=== PATIENT | female | born 1945 | race Caucasian/White ===

== ENCOUNTER 2023-05-29 13:10 | Day surgery (SDC) | payer BC ==
[2023-05-25 12:36] LABS: BASOPHILS # (AUTO) 0.1 X10'3 (0-0.2); BASOPHILS % (AUTO) 1.6 % (0-1); EOSINOPHILS # (AUTO) 0.2 X10'3 (0-0.9); EOSINOPHILS % (AUTO) 4.4 % (0-6); HEMATOCRIT 35.6 % (35.0-45.0); HEMOGLOBIN 11.7 g/dl (12.0-16.0); LYMPHOCYTES # (AUTO) 1.3 X10'3 (1.1-4.8); LYMPHOCYTES % (AUTO) 22.7 % (21-51); MEAN CORPUSCULAR HEMOGLOBIN 28.7 PG (27.0-31.0); MEAN CORPUSCULAR HGB CONC 32.9 g/dL (33.0-36.5); MEAN CORPUSCULAR VOLUME 87.3 FL (78-98); MEAN PLATELET VOLUME 8.4 FL (7.4-10.4); MONOCYTES # (AUTO) 0.5 X10'3 (0-0.9); MONOCYTES % (AUTO) 9.5 % (2-12); NEUTROPHILS # (AUTO) 3.4 X10'3 (1.8-7.7); NEUTROPHILS % (AUTO) 61.8 % (42-75); PLATELET COUNT 197 X10'3 (140-440); RED BLOOD COUNT 4.08 X10'6 (4.20-5.60); WHITE BLOOD COUNT 5.6 X10'3 (4.5-11.0)
[2023-05-25 12:47] LABS: APTT 29 SECONDS (22-32); INR 1.1 INR; PROTHROMBIN TIME 11.8 SECONDS (9.0-12.0)
[2023-05-25 12:48] LABS: ALBUMIN 2.9 G/DL (3.4-5.0); ANION GAP 4 (8-16); BLOOD UREA NITROGEN 12 MG/DL (7-18); BUN/CREATININE RATIO 12.6 (10.0-20.0); CHLORIDE 103 MMOL/L (99-107); CHOL/HDL RATIO 2.7 (0.00-4.99); CHOLESTEROL 112 MG/DL (0-200); CREATININE 0.95 MG/DL (0.40-0.90); GLUCOSE 102 MG/DL (70-104); HDL CHOLESTEROL 41 MG/DL (35-60); LDL CHOLESTEROL 60 MG/DL (50-100); SODIUM 136 MMOL/L (135-145); TOTAL CARBON DIOXIDE 28.6 MMOL/L (24-32); TRIGLYCERIDES 99 MG/DL (20-135); eGFR 57 ML/MIN
[2023-05-29] VITALS (7 sets, daily range): BP systolic 113–155; BP diastolic 62–80; PULSE 91–101; RESP 13–17; TEMP 97.8; O2SAT 94–96
[~2023-05-29] VITALS: Ht 162.6 cm; Wt 116.3 kg
[~2023-05-29 13:10] MED LIST: CYCL-1 PO; INDO50CA96 PO
[2023-05-29] MEDS ORDERED: LISI20TA28 PO (13:40)
[2023-05-29] MEDS ORDERED: OMEP20CA16 PO (13:40)
[2023-05-29] MEDS ORDERED: DOXE150C2 PO (13:40)
[2023-05-29] MEDS ORDERED: LEVO150T8 PO (13:40)
[2023-05-29] MEDS ORDERED: FURO40TA4 PO (13:40)
[2023-05-29] MEDS ORDERED: ASPI81TA52 PO (13:40)
[2023-05-29] MEDS ORDERED: ATOR20TA66 PO (13:40)
[2023-05-29] MEDS ORDERED: TIZA-205 PO (13:40)
[2023-05-29] MEDS ORDERED: diphenhydrAMINE 25mg capsule PO PRN (14:25)
[2023-05-29] MEDS ORDERED: normal saline 1,000 ML IV SCH (14:25)
[2023-05-29] MEDS ORDERED: LORazepam 0.5 MG tablet PO PRN (14:25)
[2023-05-29] MEDS ORDERED: midazolam 1 mg/ML 2ml injection ONE (16:02)
[2023-05-29] MEDS ORDERED: verapamil 2.5 mg/ml inj IV ONE (16:02)
[2023-05-29] MEDS ORDERED: LIDOcaine 1% (10mg/ml) 2ml vial ONE (16:02)
[2023-05-29] MEDS ORDERED: fentaNYL/PF 50MCG/1 ML 2ML syringe ONE (16:02)
[2023-05-29] MEDS ORDERED: heparin 1,000unit/ml 10ml vial 10 ML ONE (16:02)
[2023-05-29] MEDS ORDERED: iohexol 350MG/ML 100ml bottle IV ONE (16:02)
[2023-05-29] MEDS ORDERED: nitroGLYCERIN 500mcg/5mL D5W 5 ML IV ONE (16:11)
[2023-05-29] MEDS ORDERED: LIDOcaine 1% (10mg/ml)w/preservative inj. 20ml MDV ONE (16:13)
[2023-05-30 06:09] LABS: ISTAT HGB MIX 10.5 g/dl (12.0-16.0); ISTAT Hct MIX 31 %PCV (35-45); ISTAT O2 SATURATION MIX VENOUS 89 % (60-80); ISTAT SOURCE BLNK
[2023-05-30 06:09] LABS: ISTAT HGB MIX 10.2 g/dl (12.0-16.0); ISTAT Hct MIX 30 %PCV (35-45); ISTAT O2 SATURATION MIX VENOUS 67 % (60-80); ISTAT SOURCE BLNK
== END 2023-05-29 18:55 | disposition home or self-care (01) ==
LOC: SSTAY O 13:10
PROVIDERS: ATTEND Student in an Organized Health Care Education/Training Program
DX: I35.0 Nonrheumatic aortic (valve) stenosis (principal); I11.0 Hypertensive heart disease with heart failure; I50.9 Heart failure, unspecified; E78.5 Hyperlipidemia, unspecified; I65.29 Occlusion and stenosis of unspecified carotid artery; M19.90 Unspecified osteoarthritis, unspecified site; G43.909 Migraine, unspecified, not intractable, without status migrainosus; E03.9 Hypothyroidism, unspecified; E66.01 Morbid (severe) obesity due to excess calories; Z68.42 Body mass index [BMI] 45.0-49.9, adult; Z79.899 Other long term (current) drug therapy; Z79.82 Long term (current) use of aspirin
CPT/HCPCS: 36415; 80048; 80061; 82803; 85014; 85025; 85610; 85730; 93005; 93460; 99152; A6258; J1644; J2250; J3010; J3490; J7030; Q0163; Q9967; 99153; A6402; C1751; C1894

== ENCOUNTER 2023-07-27 11:50 | Outpatient (CLI) | payer BC, MEDICAID ==
[~2023-07-27] VITALS: Ht 158.8 cm; Wt 117.9 kg
[~2023-07-27 11:50] MED LIST changes: +ASPI81TA52 PO; +ATOR20TA66 PO; +DOXE150C2 PO; +FURO40TA4 PO; +LEVO150T8 PO; +OMEP20CA16 PO; +TIZA-205 PO
[2023-07-27 13:00] LABS: RED CELL DISTRIBUTION WIDTH 15.2 % (11.5-14.5)
[2023-07-27 13:02] LABS: HEMATOCRIT 31.7 % (35.0-45.0); HEMOGLOBIN 10.1 g/dl (12.0-16.0); MEAN CORPUSCULAR HEMOGLOBIN 26.8 PG (27.0-31.0); MEAN CORPUSCULAR HGB CONC 31.8 g/dL (33.0-36.5); MEAN CORPUSCULAR VOLUME 84.2 FL (78-98); MEAN PLATELET VOLUME 7.9 FL (7.4-10.4); PLATELET COUNT 145 X10'3 (140-440); RED BLOOD COUNT 3.77 X10'6 (4.20-5.60); WHITE BLOOD COUNT 4.3 X10'3 (4.5-11.0)
[2023-07-27 13:03] LABS: APTT 27 SECONDS (22-32); PROTHROMBIN TIME 11.1 SECONDS (9.0-12.0)
[2023-07-27 13:11] LABS: ALANINE AMINOTRANSFERASE 18 U/L (12-78); ALBUMIN 2.8 G/DL (3.4-5.0); ALBUMIN/GLOBULIN RATIO 0.6 (1.1-1.5); ALKALINE PHOSPHATASE 116 IU/L (46-116); ANION GAP 5 (8-16); ASPARTATE AMINO TRANSFERASE 25 U/L (10-37); BILIRUBIN,TOTAL 0.4 MG/DL (0.1-1.0); BLOOD UREA NITROGEN 18 MG/DL (7-18); BUN/CREATININE RATIO 18.2 (10.0-20.0); CALCIUM 8.4 MG/DL (8.5-10.1); CHLORIDE 105 MMOL/L (99-107); CREATININE 0.99 MG/DL (0.40-0.90); GLUCOSE 99 MG/DL (70-104); POTASSIUM 4.2 MMOL/L (3.5-5.1); PRO BRAIN NATRIURETIC PEPTIDE 247 PG/ML (0-450); SODIUM 137 MMOL/L (135-145); TOTAL CARBON DIOXIDE 27.3 MMOL/L (24-32); TOTAL PROTEIN 7.8 G/DL (6.4-8.2); eGFR 55 ML/MIN
[2023-07-27] MEDS ORDERED: IODIXANOL 320 MG/ML INFUS..BTL 100ML IV ONE (13:16)
[2023-07-27] MEDS ORDERED: metoprolol tartrate 1mg/ml inj IV ONE (13:55)
[2023-07-27 14:33] LABS: PLATELET ESTIMATE NORMAL; TOTAL CELLS COUNTED 100
[2023-07-27 14:34] LABS: ANISOCYTOSIS 1+; HYPOCHROMASIA 1+; POLYCHROMASIA 1+
[2023-07-27] MEDS ORDERED: albuterol 2.5 MG/3 ML nebule NEB ONE (14:45)
[2023-07-27 14:54] LABS: ABG BASE EXCESS -0.8 mmol/L (-2.0-2.0); ABG HCO3 23.8 mmol/L (22.0-26.0); ABG OXYGEN SATURATION 93.8 % (94-97); ABG PH (T) 7.403 (7.350-7.450); ABG PO2 (T) 71.3 mmHg (75.0-100.0); ALLEN'S TEST POSITIVE; FCOHb 0.1 % (0.0-3.9); FHHb 6.2 % (0.0-5.0); FMetHb 0.3 % (0.0-1.5); FO2Hb 93.4 % (94-97); MODE ROOM AIR; TOTAL HEMOGLOBIN 11.2 G/dl (12.0-16.0)
[2023-07-27 15:03] VITALS: PULSE 74; RESP 16; O2SAT 98
== END 2023-07-27 23:59 | disposition home or self-care (01) ==
LOC: RAD 11:50
PROVIDERS: ATTEND Internal Medicine Cardiovascular Disease
DX: I35.0 Nonrheumatic aortic (valve) stenosis (principal); I34.81 Nonrheumatic mitral (valve) annulus calcification; I65.29 Occlusion and stenosis of unspecified carotid artery; M47.814 Spondylosis without myelopathy or radiculopathy, thoracic region; K76.89 Other specified diseases of liver; K57.30 Diverticulosis of large intestine without perforation or abscess without bleeding; J98.4 Other disorders of lung; R59.9 Enlarged lymph nodes, unspecified; I70.0 Atherosclerosis of aorta; N28.1 Cyst of kidney, acquired; R94.31 Abnormal electrocardiogram [ECG] [EKG]; R06.02 Shortness of breath
CPT/HCPCS: 36415; 36600; 71046; 71275; 74174; 75572; 80053; 82803; 83880; 85007; 85018; 85025; 85610; 85730; 94060; 94727; 94729; 94760; J3490; Q9967